=== PATIENT | female | born 1960 | race Hispanic/Latino ===

== ENCOUNTER 2018-05-30 10:31 | Inpatient (IN) | payer BC | END 2018-06-01 14:55 | disposition home health service (06) | LOC: DAHIP 10:31 → 4AH 15:15 | PROC: 0SRC0J9 Replacement of Right Knee Joint with Synthetic Substitute, Cemented, Open Approach (ICD-10-PCS; principal; 2018-05-30 11:40) | DX: M17.11 Unilateral primary osteoarthritis, right knee (principal) ==

== ENCOUNTER → 2019-03-26 | Outpatient (CLI) | payer BC ==
[~2019-03-26] MED LIST: ASPI-1012 PO; CALC-960 PO; ESTR0.5T PO; HYDR-4457 PO; IOHEXOL 350 MG/ML 100ML INFUS..BTL IV ONE; TRAM50TA4 PO
== END | disposition home or self-care (01) ==
LOC: RAH 07:41
PROVIDERS: ATTEND Internal Medicine Gastroenterology
DX: K76.9 Liver disease, unspecified (principal); M48.56XA Collapsed vertebra, not elsewhere classified, lumbar region, initial encounter for fracture; R93.2 Abnormal findings on diagnostic imaging of liver and biliary tract; R10.11 Right upper quadrant pain
CPT/HCPCS: 74178; Q9967

== ENCOUNTER → 2022-11-21 | Outpatient (CLI) | payer BC ==
[~2022-11-21] MED LIST changes: -IOHEXOL 350 MG/ML 100ML INFUS..BTL IV ONE
== END | disposition home or self-care (01) ==
LOC: RAH 10:06
PROVIDERS: ATTEND Obstetrics & Gynecology
DX: Z12.31 Encounter for screening mammogram for malignant neoplasm of breast (principal)
CPT/HCPCS: 77067

== ENCOUNTER 2024-05-05 10:21 | Emergency (ER) | payer BC, OTHER ==
[~2024-05-05] VITALS: Ht 157.5 cm; Wt 78.9 kg
[~2024-05-05 10:21] MED LIST changes: -ESTR0.5T PO; +ESTR0.5T2 PO
--- NOTE | 2024-05-05 10:37 | ERN ---
ED Note History of Present Illness Stated Complaint: BACK PAIN POST FALL Chief Complaint: Mechanical Fall Time Seen by MD: 10:24 Dictation: 63-year-old female presents to the ED via EMS for evaluation post fall onset this morning. Patient reports back pain, but denies any head injury, LOC, neck pain or any other associated symptoms at this time. Patient states she was in her restroom and she slipped and fell landing on her buttocks. History of chronic back pain post fall in 2007 and total right knee replacement in 2019. Allergies: Coded Allergies: No Known Drug Allergies (Unverified Allergy, Unknown, 08/01/16) Home Meds Active Scripts Hydrocodone/Acetaminophen (Micro 5-325 Tablet) 1 Each Tablet, 1-2 EACH PO Q6HPRN PRN for PAIN, #90 TAB Prov:RIGO BARROS MD 06/01/18 Aspirin (ASPIRIN) 325 Mg Tablet, 325 MG PO BID, #40 TAB Prov:RIGO BARROS MD 06/01/18 Reported Medications Calcium Carb & Cit/Vitamin D3 (Citracal + D ER Tablet) 1 Each Tablet.er, 1 EACH PO BID, TAB 05/29/18 Estradiol (Estradiol) 0.5 Mg Tablet, 0.5 MG PO DAILY, TAB 05/29/18 Tramadol Hcl (Tramadol HCl) 50 Mg Tablet, 50 MG PO Q8HPRN for PAIN, TAB 05/29/18 Past Medical History Past Medical History: High Cholesterol Additional Past Medical Hx: CHRONIC BACK PAIN Surgical History: Other Surgical History Other: R KNEE SURGERY Review of System Dictation Constitutional: Positive for fall Negative for fever,chills, and weight loss Eyes: Negative for injury, pain,redness, and discharge ENT: Negative for injury,pain or swelling Cardiovascular: Negative for chest pain, palpitations, and edema Respiratory: Negative for shortness of breath, cough, and wheezing, Abdomen/GI: Negative for abdominal pain, nausea, vomiting, diarrhea, and constipation Back: Positive for back pain : Negative for injury, bleeding and discharge MS/Extremity: Negative for injury and deformity Skin: Negative for rash, and discoloration Neuro: Negative for headache, weakness, numbness, tingling, and seizure Psych: Negative for suicide ideation, homicidal ideation, and hallucinations Initial Vital Sign VS Vital Signs Date Time Temp Pulse Resp B/P (MAP) Pulse Ox O2 Delivery O2 Flow Rate FiO2 1/5/25 10:23 98.1 92 16 120/79 99 Room Air 0 05/05/24 10:36 21 Physical Exam Dictation General: awake, alert, NAD Head/Face: Normocephalic, atraumatic Eyes: PERRL, EOMI, vision at baseline ENT: oral cavity clear, TMs clear, no signs of infection Neck: Trachea midline, supple, no nuchal rigidity Cardiovascular: RRR, normal S1/S2, No MRGs, no JVD Respiratory: CTAB, no respiratory distress, No rales or wheezes Abdomen: Soft, non-tender, non-distended, normal bowel sounds, no guarding or rebound. Skin: Warm, dry, normal turgor, no rash MS/Extremity: Pulses equal, no cyanosis, neurovascular intact, FROM Neuro: COAx4, GCS 15, strength 5/5, CN 2-12 intact, normal cerebellar exam, normal gait, Psych: Normal behavior, mood, and affect normal Results (Laboratory/Radiology) CT Scan Comment: REASON: fall ORDERING PHYSICIAN: NIKO GILMORE MD PROCEDURE: HEAD WO - CT HEAD/BRAIN W/O CONTRAST CT HEAD WITHOUT CONTRAST INDICATION: Fall TECHNIQUE: Noncontrast axial helical CT images from the vertex through the skull base using 5 mm slice thickness without contrast material. CT was performed with one or more of the following dose reduction techniques: Automated exposure control, adjustment of the mA and/or kV according to patient size, or use of iterative reconstruction technique. COMPARISON: None FINDINGS: The cerebral and cerebellar hemispheres are age-appropriate in appearance. No evidence for abnormal extra-axial fluid collections or masses. The ventricles and sulci are normal in size and configuration. No evidence for intracranial parenchymal, epidural, or subdural hemorrhage, mass effect or midline shift. The frank-white matter differentiation is well preserved. No secondary evidence to suggest acute ischemia. The brainstem and cerebellum appear normal. The visualized orbits appear unremarkable. The visible paranasal sinuses and mastoid air cells are clear. The calvarium appears normal. IMPRESSION: No acute intracranial process identified. DICTATED BY: DHRUV DAWSON MD DATE: 05/05/24 1116 REASON: fall, low back pain ORDERING PHYSICIAN: NIKO GILMORE MD PROCEDURE: ABD PELVWO - CT ABD/PEL WO CON RENAL/APPY CT ABDOMEN WITHOUT CONTRAST. CT PELVIS WITHOUT CONTRAST. INDICATION: Low back pain after fall TECHNIQUE: Routine transaxial imaging using 5 mm slice thickness through the abdomen and pelvis without the administration of IV contrast. Thin slice reconstructions are also provided. Coronal and sagittal reformatted images acquired for interpretation. CT was performed with one or more of the following dose reduction techniques: Automated exposure control, adjustment of the mA and/or kV according to patient size, or use of iterative reconstruction technique. COMPARISON: 03/26/2019 FINDINGS: ON NONCONTRAST IMAGING: ABDOMEN: Heart size is normal. Visible lung bases are clear. Tiny hiatal hernia. No abnormal renal calcifications, hydronephrosis, perinephric inflammation, or proximal hydroureter detected. The liver is normal in size and smooth in contour without biliary duct dilation. A few small simple hepatic cysts. The spleen is normal in size and attenuation. The gallbladder appears normal. The pancreas appears normal without pancreatic duct dilation. The adrenal glands appear normal. No significant abdominal, retrocrural or retroperitoneal adenopathy noted. No evidence for intra-abdominal free air or organized fluid collection. No aortic aneurysmal dilation identified. PELVIS: No abnormal calcifications within the urinary bladder or distal ureters. No evidence for free air or organized pelvic fluid collection. No significant pelvic adenopathy detected. Several diverticula along the sigmoid colon. Terminal ileum appears unremarkable. The appendix appears normal. Chronic moderate L1 vertebral body compression deformity includes anterior wedging and secondary mild kyphosis at the same level, but no evidence for any superimposed acute component. IMPRESSION: 1. Degenerative changes as described, without evidence for any acute intra-abdominal or pelvic process, and no evidence for any acute spinal injury. 2. Sigmoid diverticulosis. 3. Additional minor findings, L1 vertebral body degenerative changes, and pertinent negatives as reported. DICTATED BY: DHRUV DAWSON MD DATE: 05/05/24 1116 ED Course ED Course Orders Procedure Category Date Status Time Ct Abd/Pel Wo Con CT 05/05/24 Resulted Renal/Appy 10:24 Diazepam 5 Mg/Ml 2 Ml PHA 05/05/24 Complete Syg (Valium 5 Mg/M 10:30 Ct Head/Brain W/O CT 05/05/24 Resulted Contrast 10:29 Ketorolac PHA 05/05/24 Complete Tromethamine 15mg/Ml 12:00 Diazepam 5 Mg/Ml 2 Ml PHA 05/05/24 Complete Syg (Valium 5 Mg/M 12:00 Current Medications Medications (Trade) Dose Ordered Sig/Melissa Route PRN Reason Start Time Stop Time Status Last Admin Dose Admin Diazepam (VALium 5 MG/ML 2 ML SYG) 2.5 mg ONCE ONCE IM 05/05/24 12:00 05/05/24 12:02 DC 05/05/24 12:12 Diazepam (VALium 5 MG/ML 2 ML SYG) 2.5 mg ONCE ONCE IVP 05/05/24 10:30 05/05/24 10:31 DC 05/05/24 11:28 Ketorolac Tromethamine (toRADol) 15 mg ONCE ONCE IV 05/05/24 12:00 05/05/24 12:02 DC 05/05/24 12:12 Vital Signs Date Time Temp Pulse Resp B/P (MAP) Pulse Ox O2 Delivery O2 Flow Rate FiO2 05/05/24 10:36 98.1 70 18 119/81 99 Room Air* 0 21 05/05/24 10:23 98.1 92 16 120/79 99 Room Air 0 Medical Decision Making MDM MDM: Differential diagnosis: Fall, back sprain, contusion Previous outside records reviewed: Old ER visits. Need for hospitalization: Patient does not meet criteria for hospitalization. Need for emergency major/minor surgery: No Patient's prior external medical records from other ER visits were reviewed by me as indicated. Prior testing and results from previous visits were reviewed. Prior tests were taken into account with medical decision making and resource utilization, independent historian/historians were used to obtain complete medical history. I independently interpreted the test that were performed, results were reviewed by me and considered findings on radiology if ordered. DX & DISP Disposition: Discharge Departure Impression: Primary Impression: Fall Additional Impression: Lumbar sprain Condition: Stable Referrals: ESTEFANY PRETTY (PCP) Time of Disposition: 12:16 NIKO GILMORE MD May 05, 2024 10:37
--- NOTE | 2024-05-05 11:19 | HMCIMG ---
CT HEAD WITHOUT CONTRAST INDICATION: Fall TECHNIQUE: Noncontrast axial helical CT images from the vertex through the skull base using 5 mm slice thickness without contrast material. CT was performed with one or more of the following dose reduction techniques: Automated exposure control, adjustment of the mA and/or kV according to patient size, or use of iterative reconstruction technique. COMPARISON: None FINDINGS: The cerebral and cerebellar hemispheres are age-appropriate in appearance. No evidence for abnormal extra-axial fluid collections or masses. The ventricles and sulci are normal in size and configuration. No evidence for intracranial parenchymal, epidural, or subdural hemorrhage, mass effect or midline shift. The frnak-white matter differentiation is well preserved. No secondary evidence to suggest acute ischemia. The brainstem and cerebellum appear normal. The visualized orbits appear unremarkable. The visible paranasal sinuses and mastoid air cells are clear. The calvarium appears normal. IMPRESSION: No acute intracranial process identified.
--- NOTE | 2024-05-05 11:21 | HMCIMG ---
CT ABDOMEN WITHOUT CONTRAST. CT PELVIS WITHOUT CONTRAST. INDICATION: Low back pain after fall TECHNIQUE: Routine transaxial imaging using 5 mm slice thickness through the abdomen and pelvis without the administration of IV contrast. Thin slice reconstructions are also provided. Coronal and sagittal reformatted images acquired for interpretation. CT was performed with one or more of the following dose reduction techniques: Automated exposure control, adjustment of the mA and/or kV according to patient size, or use of iterative reconstruction technique. COMPARISON: 03/26/2019 FINDINGS: ON NONCONTRAST IMAGING: ABDOMEN: Heart size is normal. Visible lung bases are clear. Tiny hiatal hernia. No abnormal renal calcifications, hydronephrosis, perinephric inflammation, or proximal hydroureter detected. The liver is normal in size and smooth in contour without biliary duct dilation. A few small simple hepatic cysts. The spleen is normal in size and attenuation. The gallbladder appears normal. The pancreas appears normal without pancreatic duct dilation. The adrenal glands appear normal. No significant abdominal, retrocrural or retroperitoneal adenopathy noted. No evidence for intra-abdominal free air or organized fluid collection. No aortic aneurysmal dilation identified. PELVIS: No abnormal calcifications within the urinary bladder or distal ureters. No evidence for free air or organized pelvic fluid collection. No significant pelvic adenopathy detected. Several diverticula along the sigmoid colon. Terminal ileum appears unremarkable. The appendix appears normal. Chronic moderate L1 vertebral body compression deformity includes anterior wedging and secondary mild kyphosis at the same level, but no evidence for any superimposed acute component. IMPRESSION: 1. Degenerative changes as described, without evidence for any acute intra-abdominal or pelvic process, and no evidence for any acute spinal injury. 2. Sigmoid diverticulosis. 3. Additional minor findings, L1 vertebral body degenerative changes, and pertinent negatives as reported.
[2024-05-05] MEDS: diazePAM 5 MG/ML 2 ML SYG IVP ONE (11:28)
[2024-05-05] MEDS: diazePAM 5 MG/ML 2 ML SYG IM ONE (12:12)
[2024-05-05] MEDS: ketOROlac 15MG/ML VIAL (15MG/ML) IV ONE (12:12)
[2024-05-05 12:35] VITALS: BP 133/63; PULSE 69; RESP 16; TEMP 98.1; O2SAT 99
== END 2024-05-05 12:38 | disposition home or self-care (01) ==
LOC: EDH 10:21
DX: S33.5XXA Sprain of ligaments of lumbar spine, initial encounter (principal); E78.00 Pure hypercholesterolemia, unspecified; Z79.82 Long term (current) use of aspirin; W18.11XA Fall from or off toilet without subsequent striking against object, initial encounter; Y93.01 Activity, walking, marching and hiking; Y92.89 Other specified places as the place of occurrence of the external cause; Y99.8 Other external cause status
CPT/HCPCS: 99285; 70450; 96374; 96375; 74176; 96372; J3360 ×2; J1885